=== PATIENT | male | born 1980 | race Caucasian/White ===

== ENCOUNTER → 2017-03-27 12:36 | Outpatient (CLI) | payer OTHER, SELFPAY ==
--- NOTE | 2017-03-27 12:46 | RAD_ITS ---
STUDY: X-RAY CHEST REASON FOR EXAM: Male, 36 years old. Influenza. Possible pneumonia. TECHNIQUE: PA and lateral views of the chest. COMPARISON: None. FINDINGS: Increased markings are seen in the lingular segment of the left upper lobe suggestive of early infiltrate. There is no demonstrated pleural abnormality. Normal size heart. Normal mediastinum and maricel. Normal visualized pulmonary arteries. Normal visualized aortic arch and descending thoracic aorta. Normal visualized thoracic spine. Normal visualized ribs, clavicles, and shoulders. There is no demonstrated abnormality of the visualized soft tissue structures of the upper abdomen. RAD/Chest PA and Lateral IMPRESSION: Findings suggestive of an early lingular infiltrate. Electronically Signed: Blair Arceo MD at 13:44 EST Tel [phone], Service support ,
== END ==
PROVIDERS: Family Provider Family Medicine; PCP Family Medicine; Visit Provider Family Medicine
DX: R05 Cough (principal)
CPT/HCPCS: 71046